=== PATIENT | female | born 1950 | race Caucasian/White ===

== ENCOUNTER → 2016-05-22 | Outpatient (CLI) | payer OTHER, BC | LOC: MMPC 09:00 | DX: J01.00 Acute maxillary sinusitis, unspecified (principal); K04.7 Periapical abscess without sinus | CPT/HCPCS: 99213; G0463 ==

== ENCOUNTER → 2016-07-05 | Outpatient (CLI) | payer OTHER, BC ==
--- NOTE | 2016-07-05 10:45 | DI ---
MRI LUMBAR SPINE W/O CN,07/05/2016 9:03 AM: Clinical History: Right hip pain Previous Exam: None at this facility. Findings: Multiplanar MR images are obtained through the lumbar spine without contrast, and demonstrate severe levoscoliosis of the lumbar spine centered at the L2 level. The spinal cord descends normally with no rmal course and caliber and a normal conus the L1 level. Visualized portions of the kidneys are unremarkable. Paraspinal musculature is also unremarkable. The re is facet hypertrophy noted throughout which is worst at the most scoliotic portions. Individual intervertebral disc spaces: L1/2: There is endplate osteophyte formation contributing to n o significant neural foraminal narrowing. There is facet hypertrophy at this level as well. L2/3: There is facet and ligamentum flavum hypertrophy and some endplate osteophyte formation contrib uting to mild right neuroforaminal narrowing. There is no central canal nor left neural foraminal young rowing. L3/4: There is mild degenerative changes of the endplate with some facet hypertrophy causing mild rig ht neuroforaminal narrowing. L4/5: There is facet hypertrophy with no significant neuroforaminal narrowing or central canal stenos is. L5/S1: There is significant facet hypertrophy without central canal stenosis. There is mild left neur oforaminal narrowing. Impression: Severe levoscoliosis of the mid lumbar spine centered at the L2 level with only mild neural foraminal narrowing at some levels as above.
--- NOTE | 2016-07-05 11:18 | DI ---
XR CXR 2VW PA/LAT,07/05/2016 9:04 AM: Clinical History: Leg swelling and shortness of breath Previous Exam: None at this facility. Findings: PA and lateral views of the chest are obtained, and demonstrate clear lungs. The cardiomediastinum is unremarkable. There is pronounced dextroscoliosis of the midthoracic spine. There is no evidence of infiltrate nor effusion. There are mild degenerative changes of the cervical spine. Impression: No acute disease.
--- NOTE | 2016-07-05 11:24 | DI ---
XR HIP COMPLETE MIN 2VW U/L,07/05/2016 9:04 AM: Clinical History: Leg edema and shortness of breath. Previous Exam: None at this facility. Findings: AP and frog-leg views of the right hip are obtained, and demonstrate anatomic alignment without fract ures. There is some new bone formation at the head neck junction of the right proximal femur and some fragmentation of the superior lateral acetabulum most likely representing some underlying impingemen t. A nonobstructive bowel gas pattern is seen. There is significant scoliosis of the mid lumbar spine. No pathologic calcifications are seen. Impression: Degenerative changes of the right hip most likely representing some underlying impingement.
== END ==
LOC: MRI 08:55
PROVIDERS: ATTEND Obstetrics & Gynecology Gynecology
DX: M25.551 Pain in right hip (principal); R06.02 Shortness of breath; R60.0 Localized edema; M51.16 Intervertebral disc disorders with radiculopathy, lumbar region
CPT/HCPCS: 71020; 72148; 73502

== ENCOUNTER → 2016-08-27 | Outpatient (CLI) | payer OTHER, BC ==
--- NOTE | 2016-08-27 10:43 | DI ---
RIGHT KNEE, 08/27/2016 10:19 AM: Clinical History: Acute right knee pain. Previous Exam: 06/12/2009. 4 views are submitted. The AP and tunnel projections are weight bearing views. There is no acute soft tissue, osseous, or joint abnormality. The patient is status post previous ACL repair. There is narr owing of the medial compartment that has progressed since the previous exam. The posterior condylar s urface of the medial femoral condyle is irregular and there probably are some subchondral cysts. The lateral and patellofemoral compartments are normal. Readin. Status post ACL repair. Progressive medial joint space narrowing has developed along with a corti bisi irregularity of the posterior aspect of the medial femoral condyle. 2. The lateral compartment is intact.
== END ==
LOC: ORTHO 10:33
PROVIDERS: ATTEND Orthopaedic Surgery
DX: M25.562 Pain in left knee (principal); M25.561 Pain in right knee; M47.816 Spondylosis without myelopathy or radiculopathy, lumbar region; M16.11 Unilateral primary osteoarthritis, right hip; M17.11 Unilateral primary osteoarthritis, right knee; Z98.890 Other specified postprocedural states
CPT/HCPCS: 73564; 99214; G0463